=== PATIENT | male | born 1960 | race Caucasian/White ===

== ENCOUNTER 2020-04-22 11:06 | Observation (INO) | payer MEDICARE, BC ==
[2020-04-22] MEDS ORDERED: hydrALAZINE 25 MG TAB ONE (11:18)
[2020-04-22 11:24] LABS: #Monocytes 0.8 10x3/uL (0.0-1.1); #Neutrophils 14.1 10x3/uL (1.5-8.4); %Basophils 0.3 % (0.0-2.0); %Eosinophils 0.3 % (0.0-6.0); %Lymphocytes 3.1 % (18.0-47.0); %Monocytes 4.9 % (0.0-10.0); %Neutrophils 90.6 % (40.0-75.0); Hemoglobin 8.2 g/dL (13.5-17.5); Mean Corpuscular HGB CONC 33.5 g/dL (32.0-36.0); Mean Corpuscular Hemoglobin 32.8 pg (27.0-33.0); Mean Platelet Volume 9.7 fl (7.4-10.4); Platelet Count 171 10x3/uL (150-450); RBC Distribution Width 15.7 % (11.5-14.5); White Blood Cell (WBC) Count 15.6 10x3/uL (3.5-10.5)
[2020-04-22 11:39] LABS: ALT (SGPT) 21 U/L (8-55); AST (SGOT) 18 U/L (5-34); Albumin 4.1 g/dL (3.5-5.0); Alkaline Phosphatase 76 U/L (40-110); Anion Gap 22 mmol/L (10-20); BUN (Urea Nitrogen) 71 mg/dL (8.4-25.7); Bilirubin, Total 1.7 mg/dL (0.2-1.2); Calc. Creatinine Clearance 0 mL/min (70-130); Calcium 9.7 mg/dL (7.8-10.44); Carbon Dioxide 27 mmol/L (22-29); Chloride 97 mmol/L (98-107); Globulin 2.8 g/dL (2.4-3.5); Glucose 94 mg/dL (70-105); Potassium 4.1 mmol/L (3.5-5.1); Protein, Total 6.9 g/dL (6.0-8.3); Sodium 142 mmol/L (136-145)
[2020-04-22 12:08] LABS: CKMB 2.8 ng/mL (0-6.6)
[2020-04-22] MEDS ORDERED: Aspirin Chewable 81 MG TAB ONE (12:40)
[2020-04-22] MEDS ORDERED: Nitroglycerin 50 MG/250 ML BOT 250 ML ONE (12:56)
[2020-04-22] MEDS ORDERED: niCARdipine 20MG In NaCl 20 MG/200 ML BAG ONE (13:22)
[2020-04-22] MEDS ORDERED: Enoxaparin Sodium 60 MG/0.6 ML SYRINGE ONE (13:50)
[2020-04-22 14:18] LABS: Troponin I 0.097 ng/mL (< 0.028)
[2020-04-22] MEDS ORDERED: Enoxaparin Sodium 40 MG/0.4 ML SYRINGE SC SCH (14:45)
[2020-04-22] MEDS ORDERED: ALPRAZolam 0.5 MG TAB PO PRN (14:59)
[2020-04-22 15:30] LABS: Lactic Acid 1.6 mmol/L (0.5-2.2)
[2020-04-22] MEDS ORDERED: Aspirin Chewable 81 MG TAB PO SCH (15:45)
[2020-04-22] MEDS ORDERED: NIFEdipine XL 60 MG TAB PO SCH (15:45)
[2020-04-22 16:26] VITALS: BMI 21.4
[2020-04-22 17:00] LABS: SARS-CoV-2 NAA Rapid Test Not Detected (NotDetected)
[2020-04-22 17:17] LABS: Troponin I 0.103 ng/mL (< 0.028)
[2020-04-22 18:25] LABS: Troponin I 0.101 ng/mL (< 0.028)
[2020-04-22] MEDS ORDERED: Amoxicillin/Potassium Clav 500 MG TAB PO SCH (18:30)
[2020-04-22] MEDS: Carvedilol 25 MG TAB PO SCH (19:07)
[2020-04-22] MEDS: Mometasone/Formoterol 200/5 60 PUFF INH SCH (19:40)
[2020-04-22] MEDS ORDERED: Famotidine 20 MG TAB PO SCH (21:00)
[2020-04-22 21:57] LABS: Troponin I 0.099 ng/mL (< 0.028)
[2020-04-22] MEDS: Benzonatate 100 MG CAP PO PRN (23:50)
[2020-04-22] MEDS ORDERED: hydrALAZINE 20 MG/ML VIAL SLOW IVP SCH (23:59)
[2020-04-23] MEDS ORDERED: Carvedilol 25 MG TAB PO SCH (00:15)
[2020-04-23 02:32] LABS: Troponin I 0.092 ng/mL (< 0.028)
[2020-04-23] MEDS: Mometasone/Formoterol 200/5 60 PUFF INH SCH ×2 (07:12→19:25)
[2020-04-23] MEDS: Carvedilol 25 MG TAB PO SCH ×2 (08:00→15:04)
[2020-04-23] MEDS ORDERED: Minoxidil 2.5 MG TAB PO SCH (09:00)
[2020-04-23] MEDS ORDERED: FEBUXOSTAT 80 MG PO SCH (09:00)
[2020-04-23] MEDS ORDERED: Aspirin Chewable 81 MG TAB PO SCH (09:00)
[2020-04-23 09:14] LABS: #Eosinphils 0.1 10x3/uL (0.0-0.5); #Monocytes 0.4 10x3/uL (0.0-1.1); #Neutrophils 6.6 10x3/uL (1.5-8.4); %Basophils 0.5 % (0.0-2.0); %Eosinophils 1.7 % (0.0-6.0); %Lymphocytes 7.1 % (18.0-47.0); %Monocytes 5.3 % (0.0-10.0); %Neutrophils 84.9 % (40.0-75.0); Hemoglobin 6.8 g/dL (13.5-17.5); Mean Corpuscular HGB CONC 32.5 g/dL (32.0-36.0); Mean Corpuscular Hemoglobin 32.7 pg (27.0-33.0); Mean Corpuscular Volume 100.5 fl (81.2-95.1); Platelet Count 114 10x3/uL (150-450); RBC Distribution Width 15.7 % (11.5-14.5); Red Blood Cell (RBC) Count 2.08 10x6/uL (4.32-5.72); White Blood Cell (WBC) Count 7.8 10x3/uL (3.5-10.5)
[2020-04-23 09:15] LABS: Platelet Morphology Comment Appears Adequate; RBC Morphology Normal
[2020-04-23] MEDS: Benzonatate 100 MG CAP PO PRN (15:04)
[2020-04-23 19:40] VITALS: TEMP 97.6
[2020-04-23 19:41] VITALS: BP 159/76
[2020-04-24] MEDS ORDERED: NIFEdipine XL 60 MG TAB PO SCH (09:00)
== END 2020-04-23 19:40 | disposition home or self-care (01) ==
LOC: CSHERS 11:06 → CSHTELE 15:29
PROVIDERS: ADMIT Internal Medicine; ATTEND Internal Medicine
DX: I16.0 Hypertensive urgency (principal); N18.6 End stage renal disease; D63.1 Anemia in chronic kidney disease; E78.5 Hyperlipidemia, unspecified; E87.70 Fluid overload, unspecified; Z99.2 Dependence on renal dialysis; Z79.899 Other long term (current) drug therapy; Z20.822 Contact with and (suspected) exposure to COVID-19
CPT/HCPCS: 36430; 71045; 80053; 82553; 83605; 83880 ×2; 84145; 84484 ×3; 85025 ×2; 86850; 86900; 86901; 86920; 93005; 94640 ×2; 94760; 96372; 96374; 99285; G0378 ×3; P9016; U0002; 36415; J0360; J1650

== ENCOUNTER 2020-05-20 11:02 | Emergency (ER) | payer MEDICARE, BC ==
[2020-05-20 12:10] LABS: #Eosinphils 0.1 10x3/uL (0.0-0.5); #Monocytes 0.4 10x3/uL (0.0-1.1); #Neutrophils 6.6 10x3/uL (1.5-8.4); %Basophils 0.4 % (0.0-2.0); %Eosinophils 1.2 % (0.0-6.0); %Lymphocytes 4.7 % (18.0-47.0); %Monocytes 5.5 % (0.0-10.0); %Neutrophils 87.9 % (40.0-75.0); Hemoglobin 10.5 g/dL (13.5-17.5); Mean Corpuscular HGB CONC 32.4 g/dL (32.0-36.0); Mean Corpuscular Hemoglobin 32.9 pg (27.0-33.0); Mean Corpuscular Volume 101.6 fl (81.2-95.1); Mean Platelet Volume 10.1 fl (7.4-10.4); Platelet Count 131 10x3/uL (150-450); RBC Distribution Width 15.3 % (11.5-14.5); Red Blood Cell (RBC) Count 3.19 10x6/uL (4.32-5.72); White Blood Cell (WBC) Count 7.5 10x3/uL (3.5-10.5)
[2020-05-20] MEDS ORDERED: Aspirin 325 MG TAB ONE (12:11)
[2020-05-20] MEDS ORDERED: Nitroglycerin 2% Ointment 1 INCH/1 GM Packet ONE (12:11)
[2020-05-20 12:27] LABS: ALT (SGPT) 35 U/L (8-55); AST (SGOT) 24 U/L (5-34); Albumin 4.2 g/dL (3.5-5.0); Alkaline Phosphatase 79 U/L (40-110); Anion Gap 22 mmol/L (10-20); BUN (Urea Nitrogen) 34 mg/dL (8.4-25.7); Calc. Creatinine Clearance 0 mL/min (70-130); Calcium 10.1 mg/dL (7.8-10.44); Carbon Dioxide 26 mmol/L (22-29); Chloride 95 mmol/L (98-107); Globulin 3.4 g/dL (2.4-3.5); Glucose 78 mg/dL (70-105); Potassium 3.3 mmol/L (3.5-5.1); Protein, Total 7.6 g/dL (6.0-8.3); Sodium 140 mmol/L (136-145)
[2020-05-20] MEDS ORDERED: niCARdipine 20MG In NaCl 20 MG/200 ML BAG ONE (12:38)
== END 2020-05-20 14:13 | disposition left against medical advice (07) ==
LOC: CSHERS 11:02
DX: I12.0 Hypertensive chronic kidney disease with stage 5 chronic kidney disease or end stage renal disease (principal); N18.6 End stage renal disease; J90 Pleural effusion, not elsewhere classified; E78.5 Hyperlipidemia, unspecified; F17.220 Nicotine dependence, chewing tobacco, uncomplicated; Z99.2 Dependence on renal dialysis; Z79.899 Other long term (current) drug therapy
CPT/HCPCS: 71045; 80053; 82550; 82553; 83605; 83880; 84484; 85025; 93005; 94760; 96365

== ENCOUNTER 2020-12-18 11:13 | Emergency (ER) | payer MEDICARE, BC ==
[2020-12-18 13:10] LABS: #Basophils 0.1 10x3/uL (0.0-0.2); #Eosinphils 0.3 10x3/uL (0.0-0.5); #Monocytes 0.6 10x3/uL (0.0-1.1); #Neutrophils 7.5 10x3/uL (1.5-8.4); %Basophils 0.9 % (0.0-2.0); %Eosinophils 2.9 % (0.0-6.0); %Lymphocytes 5.8 % (18.0-47.0); %Monocytes 6.5 % (0.0-10.0); %Neutrophils 83.5 % (40.0-75.0); Hemoglobin 9.5 g/dL (13.5-17.5); Mean Corpuscular HGB CONC 32.4 g/dL (32.0-36.0); Mean Corpuscular Hemoglobin 33.7 pg (27.0-33.0); Mean Corpuscular Volume 103.9 fl (81.2-95.1); Mean Platelet Volume 9.6 fl (7.4-10.4); Platelet Count 176 10x3/uL (150-450); RBC Distribution Width 17.2 % (11.5-14.5); Red Blood Cell (RBC) Count 2.82 10x6/uL (4.32-5.72)
[2020-12-18] MEDS ORDERED: hydrALAZINE 20 MG/ML VIAL ONE (13:14)
[2020-12-18] MEDS ORDERED: Acetaminophen 500 MG TAB ONE (13:14)
[2020-12-18 13:25] LABS: ALT (SGPT) 19 U/L (8-55); AST (SGOT) 21 U/L (5-34); Alkaline Phosphatase 86 U/L (40-110); Anion Gap 19 mmol/L (10-20); BUN (Urea Nitrogen) 31 mg/dL (8.4-25.7); Bilirubin, Total 1.2 mg/dL (0.2-1.2); Calc. Creatinine Clearance 0 mL/min (70-130); Calcium 9.6 mg/dL (7.8-10.44); Carbon Dioxide 27 mmol/L (22-29); Chloride 98 mmol/L (98-107); Globulin 2.9 g/dL (2.4-3.5); Glucose 83 mg/dL (70-105); Potassium 3.8 mmol/L (3.5-5.1); Protein, Total 6.9 g/dL (6.0-8.3); Sodium 140 mmol/L (136-145)
== END 2020-12-18 14:55 | disposition home or self-care (01) ==
LOC: CSHERS 11:13
DX: I12.0 Hypertensive chronic kidney disease with stage 5 chronic kidney disease or end stage renal disease (principal); N18.6 End stage renal disease; E78.5 Hyperlipidemia, unspecified; E78.00 Pure hypercholesterolemia, unspecified; F17.220 Nicotine dependence, chewing tobacco, uncomplicated; Z99.2 Dependence on renal dialysis; Z79.899 Other long term (current) drug therapy
CPT/HCPCS: 70450; 71045; 80053; 85025; 93005; 96374; J0360

== ENCOUNTER 2021-09-08 12:40 | Emergency (ER) | payer MEDICARE, BC | END 2021-09-08 16:12 | disposition home or self-care (01) | LOC: CSHERS 12:40 | DX: S42.411A Displaced simple supracondylar fracture without intercondylar fracture of right humerus, initial encounter for closed fracture (principal); E78.5 Hyperlipidemia, unspecified; I12.0 Hypertensive chronic kidney disease with stage 5 chronic kidney disease or end stage renal disease; N18.6 End stage renal disease; F17.220 Nicotine dependence, chewing tobacco, uncomplicated; W19.XXXA Unspecified fall, initial encounter | CPT/HCPCS: 29105; 70450; 70486; 71045 ==

== ENCOUNTER 2021-10-29 17:32 | Inpatient (IN) | payer MEDICARE, BC ==
[2021-10-29 18:04] LABS: #Eosinphils 0.1 10x3/uL (0.0-0.5); #Monocytes 0.8 10x3/uL (0.0-1.1); #Neutrophils 11.4 10x3/uL (1.5-8.4); %Basophils 0.2 % (0.0-2.0); %Lymphocytes 3.1 % (18.0-47.0); %Monocytes 6.3 % (0.0-10.0); %Neutrophils 88.5 % (40.0-75.0); Hemoglobin 9.8 g/dL (13.5-17.5); Mean Corpuscular HGB CONC 33.6 g/dL (32.0-36.0); Mean Corpuscular Hemoglobin 31.5 pg (27.0-33.0); Mean Corpuscular Volume 93.9 fl (81.2-95.1); Mean Platelet Volume 10.3 fl (7.4-10.4); Platelet Count 225 10x3/uL (150-450); RBC Distribution Width 16.8 % (11.5-14.5); Red Blood Cell (RBC) Count 3.11 10x6/uL (4.32-5.72); White Blood Cell (WBC) Count 12.9 10x3/uL (3.5-10.5)
[2021-10-29 18:16] LABS: ALT (SGPT) 24 U/L (8-55); AST (SGOT) 7 U/L (5-34); Albumin 4.2 g/dL (3.4-4.8); Alkaline Phosphatase 101 U/L (40-110); Anion Gap 32 mmol/L (10-20); Bilirubin, Total 0.9 mg/dL (0.2-1.2); Calc. Creatinine Clearance 0 mL/min (70-130); Carbon Dioxide 18 mmol/L (23-31); Chloride 91 mmol/L (98-107); Estimated GFR 4; Globulin 3.8 g/dL (2.4-3.5); Glucose 102 mg/dL (80-115); Sodium 134 mmol/L (136-145)
[2021-10-29 18:20] LABS: BUN (Urea Nitrogen) Greater than 125 mg/dL (8.4-25.7); Potassium 6.7 mmol/L (3.5-5.1)
[2021-10-29] MEDS ORDERED: Lorazepam 2 MG/ML VIAL ONE (18:40)
[2021-10-29] MEDS ORDERED: Dextrose 50% Abboject 50 ML SYRINGE ONE (18:42)
[2021-10-29] MEDS ORDERED: Insulin Regular 300 UNITS/3 ML VIAL ONE (18:43)
[2021-10-29] MEDS ORDERED: Acetaminophen 325 MG TAB PO PRN (19:22)
[2021-10-29] MEDS ORDERED: Calcium Carbonate 500 MG ChewTAB PO PRN (19:22)
[2021-10-29] MEDS ORDERED: Guaifenesin DM 100-10/5 ML UDCUP PO PRN (19:22)
[2021-10-29] MEDS ORDERED: Ondansetron PF 4 MG/2 ML Vial IVP PRN (19:22)
[2021-10-29] MEDS ORDERED: Senokot S 8.6-50 MG TAB PO PRN (19:22)
[2021-10-29] MEDS ORDERED: Piperacillin/Tazobactam 3.375 GM in Sodium Chloride 0.9% 100 ML IVPB SCH ×2 (19:30→21:15)
[2021-10-29] MEDS: hydrALAZINE 20 MG/ML VIAL SLOW IVP PRN ×2 (20:25→23:49)
[2021-10-29] MEDS ORDERED: Nitroglycerin 2% Ointment 1 INCH/1 GM Packet TOP SCH (20:30)
[2021-10-29] MEDS ORDERED: Pharmacy to Dose ABX/VANCOMYCIN IVPB PRN (20:31)
[2021-10-29] MEDS: Midazolam HCl 2 mg/2 ml Vial SLOW IVP PRN (20:44)
[2021-10-29 20:54] LABS: CKMB 28.9 ng/mL (0-6.6)
[2021-10-29] MEDS ORDERED: Dorzolamide HCl 2% Ophth Soln 10 ml Bottle L EYE SCH (21:00)
[2021-10-29] MEDS ORDERED: Vancomycin Hemodialysis Sliding Scale FS SCH (21:15)
[2021-10-29] MEDS ORDERED: Vancomycin 1.5 GRAM/300 ML BAG 1.5 GM in Premix Bag 1 BAG IVPB SCH (21:15)
[2021-10-29] MEDS ORDERED: Lorazepam 2 MG/ML VIAL SLOW IVP SCH (21:30)
[2021-10-29] MEDS: Heparin 5,000 UNITS/ML VIAL SC SCH (21:30)
[2021-10-29] MEDS: Timolol 0.5% Ophth Soln 5 ml Bottle L EYE SCH (21:45)
[2021-10-29 21:59] LABS: ALV-art Gradient 146.475 mmHg (0-20); Actual Bicarbonate (HCO3a) 23.5 mEq/L (22-28); Base Excess (BEa) -1.8 mEq/L (-2.0 to +3.0); CO2 Tension 41.7 mmHg (35.0-45.0); Calcium, Ionized (arterial) 1.14 mmol/L (1.12-1.30); Carboxyhemoglobin (COHb) 0.3 gm% (0.0-3.0); Critical Notified By: CP.PH; O2 Tension (PaO2), arterial 86.6 mmHg (> 80.0); Potassium - ABG Lab 5.6 mmol/L (3.70-5.30); Puncture Site RRA; RapidComm Collect By CP.PH; pH, Arterial 7.37 (7.35-7.45)
[2021-10-29 22:59] LABS: HBSAg Index 0.24 S/CO (0-0.99); Hep B Surf Ag Non-Reactive S/CO (NonReactive)
[2021-10-29] MEDS: cloNIDine 0.1 MG TAB PO SCH (23:33)
[2021-10-29] MEDS: Labetalol HCl 200 MG TAB PO SCH (23:33)
[2021-10-29] MEDS: NIFEdipine XL 60 MG TAB PO SCH (23:34)
[2021-10-29] MEDS: Minoxidil 2.5 MG TAB PO SCH (23:34)
[2021-10-29] MEDS ORDERED: Prevnar 13-Val Conj/PF 0.5 ML SYRINGE IM ONE (23:45)
[2021-10-30] MEDS: Midazolam HCl 2 mg/2 ml Vial SLOW IVP PRN ×2 (00:29→14:16)
[2021-10-30] MEDS ORDERED: Morphine 2 MG/ML VIAL SLOW IVP SCH (00:30)
[2021-10-30] MEDS ORDERED: Dexmedetomidine In 0.9 % NaCl 100 ML IVPB SCH (00:30)
[2021-10-30] MEDS ORDERED: Piperacillin/Tazobactam 3.375 GM in Sodium Chloride 0.9% 100 ML IVPB SCH ×3 (01:30→06:00)
[2021-10-30] MEDS ORDERED: Vancomycin 1.5 GRAM/300 ML BAG 1.5 GM in Premix Bag 1 BAG IVPB SCH (01:30)
[2021-10-30 01:34] VITALS: TEMP 97.2
[2021-10-30 01:36] LABS: Anion Gap 22 mmol/L (10-20); BUN (Urea Nitrogen) 41 mg/dL (8.4-25.7); Calc. Creatinine Clearance 16 mL/min (70-130); Carbon Dioxide 24 mmol/L (23-31); Chloride 95 mmol/L (98-107); Estimated GFR 14; Glucose 79 mg/dL (80-115); Potassium 3.8 mmol/L (3.5-5.1); Sodium 137 mmol/L (136-145)
[2021-10-30] MEDS ORDERED: Dextrose 50% Abboject 50 ML SYRINGE SLOW IVP SCH (02:00)
[2021-10-30] MEDS ORDERED: Ipratropium Bromide 2.5 ml Neb ONE (04:08)
[2021-10-30] MEDS ORDERED: Albuterol Sulfate 2.5 mg/3 ml Neb ONE (04:08)
[2021-10-30] MEDS ORDERED: methylPREDNISolone Sod Succ/PF 125 MG/2 ML VIAL IVP SCH (04:15)
[2021-10-30 04:33] LABS: Anion Gap 21 mmol/L (10-20); BUN (Urea Nitrogen) 53 mg/dL (8.4-25.7); Calc. Creatinine Clearance 12 mL/min (70-130); Calcium 9.3 mg/dL (7.8-10.44); Carbon Dioxide 25 mmol/L (23-31); Chloride 93 mmol/L (98-107); Estimated GFR 10; Glucose 168 mg/dL (80-115); Potassium 4.9 mmol/L (3.5-5.1); Sodium 134 mmol/L (136-145)
[2021-10-30 04:47] LABS: Hemoglobin 11.2 g/dL (13.5-17.5); Mean Corpuscular HGB CONC 32.7 g/dL (32.0-36.0); Mean Corpuscular Hemoglobin 31.6 pg (27.0-33.0); Mean Corpuscular Volume 96.6 fl (81.2-95.1); Platelet Count 362 10x3/uL (150-450); Red Blood Cell (RBC) Count 3.54 10x6/uL (4.32-5.72); White Blood Cell (WBC) Count 31.4 10x3/uL (3.5-10.5)
[2021-10-30 04:59] LABS: CKMB 27.4 ng/mL (0-6.6)
[2021-10-30 05:13] LABS: Actual Bicarbonate (HCO3a) 26.7 mEq/L (22-28); Base Excess (BEa) -4.1 mEq/L (-2.0 to +3.0); Calcium, Ionized (arterial) 1.19 mmol/L (1.12-1.30); Carboxyhemoglobin (COHb) 0.3 gm% (0.0-3.0); Critical Notified By: CP.PH; Hemoglobin (Hb) 12.2 g/dL (14.0-18.0); O2 Tension (PaO2), arterial 97.9 mmHg (> 80.0); Potassium - ABG Lab 5.2 mmol/L (3.70-5.30); Puncture Site RRA; RapidComm Collect By CP.PH; pH, Arterial 7.13 (7.35-7.45)
[2021-10-30 05:18] LABS: MDiff Complete? YES
[2021-10-30 05:20] LABS: Eosinophils 1 % (0-10); Lymphocytes 2 % (21-51); Monocytes 7 % (0-10); Neutrophil 90 % (42-75)
[2021-10-30 05:21] LABS: Platelet Morphology Comment Appears Adequate; RBC Morphology Normal
[2021-10-30] MEDS ORDERED: Sodium Bicarb 50 MEQ/50 ML VIAL IVP SCH ×2 (06:00)
[2021-10-30] MEDS: cloNIDine 0.1 MG TAB PO SCH (07:42)
[2021-10-30 07:43] VITALS: BP 156/77
[2021-10-30] MEDS: Labetalol HCl 200 MG TAB PO SCH (07:43)
[2021-10-30] MEDS: Minoxidil 2.5 MG TAB PO SCH (07:43)
[2021-10-30] MEDS: NIFEdipine XL 60 MG TAB PO SCH (07:43)
[2021-10-30] MEDS: Heparin 5,000 UNITS/ML VIAL SC SCH (08:22)
[2021-10-30] MEDS: Timolol 0.5% Ophth Soln 5 ml Bottle L EYE SCH (08:26)
[2021-10-30] MEDS ORDERED: DULoxetine 30 MG CAP PO SCH (09:00)
[2021-10-30] MEDS ORDERED: Aspirin 81 mg Enteric Coated Tablet PO SCH (09:00)
[2021-10-30] MEDS ORDERED: Ascorbic Acid 500 mg Chewable Tablet PO SCH (09:00)
[2021-10-30] MEDS ORDERED: Pantoprazole 40 MG VIAL IVP SCH (09:00)
[2021-10-30] MEDS ORDERED: Dorzolamide HCl 2% Ophth Soln 10 ml Bottle L EYE SCH ×2 (13:30→21:00)
[2021-10-30 13:33] LABS: HBSAB Concentration 85.02 mIU/mL; Hep B Surf AB Reactive (NonReactive)
[2021-10-30 13:37] VITALS: BMI 19.3
== END 2021-10-30 17:51 | disposition hospice, inpatient (51) | DRG 291 ==
LOC: CSHERS 17:32 → CSHICU 20:08
PROVIDERS: ADMIT Student in an Organized Health Care Education/Training Program; ATTEND Family Medicine
PROC: 5A09357 Assistance with Respiratory Ventilation, Less than 24 Consecutive Hours, Continuous Positive Airway Pressure (ICD-10-PCS; 2021-10-29)
PROC: 5A1D70Z Performance of Urinary Filtration, Intermittent, Less than 6 Hours Per Day (ICD-10-PCS; principal; 2021-10-30)
DX: I13.2 Hypertensive heart and chronic kidney disease with heart failure and with stage 5 chronic kidney disease, or end stage renal disease (principal); G93.41 Metabolic encephalopathy; U07.1 COVID-19; N18.6 End stage renal disease; I50.33 Acute on chronic diastolic (congestive) heart failure; J96.21 Acute and chronic respiratory failure with hypoxia; J96.22 Acute and chronic respiratory failure with hypercapnia; J12.82 Pneumonia due to coronavirus disease 2019; J90 Pleural effusion, not elsewhere classified; Z66 Do not resuscitate; D63.1 Anemia in chronic kidney disease; F41.9 Anxiety disorder, unspecified; E78.00 Pure hypercholesterolemia, unspecified; E87.5 Hyperkalemia; Z99.2 Dependence on renal dialysis; Z98.890 Other specified postprocedural states; Z79.899 Other long term (current) drug therapy; Z79.51 Long term (current) use of inhaled steroids; Z90.5 Acquired absence of kidney
CPT/HCPCS: 36415; 36416; 36600; 71045; 80048; 80053; 82550; 82553; 82805; 83605; 84443; 84484; 85025; 86706; 87040; 87340; 90935; 93005; 93306; 93970; 94640; 94660; 94760; C9113; G0257; J0360; J1644; J1815; J2060; J2250; J2270; J2543; J2930; J3370; J3490; J7611; J7620; J7999

== ENCOUNTER 2021-10-30 18:03 | Inpatient (IN) | payer OTHER ==
[2021-10-30] MEDS ORDERED: Morphine 4 MG/ML VIAL SLOW IVP PRN (19:24)
[2021-10-30] MEDS ORDERED: Morphine 4 MG/ML VIAL SLOW IVP SCH (19:30)
[2021-10-30] MEDS ORDERED: Scopolamine 1.5 mg/72 hour Patch TOP PRN (19:30)
[2021-10-30] MEDS ORDERED: Lorazepam 2 MG/ML VIAL SLOW IVP PRN (19:30)
[2021-10-30] MEDS ORDERED: Lorazepam 2 MG/ML VIAL SLOW IVP SCH (19:30)
[2021-10-30 20:17] VITALS: BP 129/61; TEMP 98
== END 2021-10-31 | disposition expired | DRG 951 ==
LOC: CSHICU 18:03
PROVIDERS: ADMIT Family Medicine; ATTEND Family Medicine
DX: Z51.5 Encounter for palliative care (principal); I50.33 Acute on chronic diastolic (congestive) heart failure; J96.01 Acute respiratory failure with hypoxia; G93.41 Metabolic encephalopathy; U07.1 COVID-19; N18.6 End stage renal disease; J18.9 Pneumonia, unspecified organism; E87.2 Acidosis; I13.2 Hypertensive heart and chronic kidney disease with heart failure and with stage 5 chronic kidney disease, or end stage renal disease; E87.5 Hyperkalemia; Z99.2 Dependence on renal dialysis; D63.1 Anemia in chronic kidney disease; F17.220 Nicotine dependence, chewing tobacco, uncomplicated; F41.9 Anxiety disorder, unspecified; Z66 Do not resuscitate; Z79.899 Other long term (current) drug therapy; Z90.5 Acquired absence of kidney
CPT/HCPCS: J2060; J2270